=== PATIENT | male | born 1940 | race African-American/Black ===

== ENCOUNTER 2018-08-08 16:48 | Emergency (ER) | payer OTHER ==
[~2018-08-08] VITALS: Ht 185.4 cm; Wt 131.1 kg
[2018-08-08] MEDS ORDERED: ASPI81TA31 PO (17:04)
[2018-08-08] MEDS ORDERED: TAMS-3 PO (17:04)
[2018-08-08 17:29] LABS: BASOPHILS % (AUTO) 0.4 % (0.0-2.0); EOSINOPHILS # (AUTO) 0.1 K/uL (0.0-0.7); HEMATOCRIT 39.8 % (36.7-47.1); LYMPHOCYTES % (AUTO) 13.8 % (20.5-51.5); MEAN CORPUSCULAR HEMOGLOBIN 28.4 uug (23.8-33.4); MEAN CORPUSCULAR HGB CONC 33 g/dL (32.5-36.3); MEAN CORPUSCULAR VOLUME 87.1 fL (73.0-96.2); MONOCYTES # (AUTO) 0.5 K/uL (2.0-10.0); MONOCYTES % (AUTO) 6.6 % (0.0-11.0); NEUTROPHILS # (AUTO) 5.5 K/uL (1.8-8.9); NEUTROPHILS % (AUTO) 78.2 % (38.5-71.5); PLATELET COUNT (AUTO) 109 K/uL (152-348); RED BLOOD CELL COUNT(AUTO) 4.57 MIL/uL (4.06-5.63)
[2018-08-08 17:34] LABS: CARBON DIOXIDE 25 mmol/L (21-32); CHLORIDE 105 mmol/L (98-107); CREATININE 1.4 mg/dL (0.6-1.3); GLUCOSE 166 mg/dL (74-106)
[2018-08-08 17:44] LABS: UREA NITROGEN, BLOOD 22 mg/dL (7-18)
--- NOTE | 2018-08-08 18:03 | NUR ---
PT WAS EVALUATED BY DR NORRIS. PT WAS D/C'd TO HOME. D/C INSTRUCTIONS GIVEN TO THE PT.
[2018-08-08 18:04] VITALS: BP 139/68
== END 2018-08-08 18:15 | disposition home or self-care (01) ==
LOC: ER 16:49
DX: R42 Dizziness and giddiness (principal); Z79.899 Other long term (current) drug therapy
CPT/HCPCS: 36415; 85025; 93005; A4663